=== PATIENT | male | born 1960 | race African-American/Black ===

== ENCOUNTER 2017-03-15 23:37 | Emergency (ER) | payer OTHER ==
[~2017-03-15] VITALS: Ht 182.9 cm; Wt 77.0 kg
[~2017-03-15 23:37] MED LIST: ALBU8.5H8 IH; ASPI-1182 PO
[2017-03-16] MEDS ORDERED: THIA100 PO (00:05)
[2017-03-16] MEDS ORDERED: FOLI1TAB15 PO (00:05)
[2017-03-16] MEDS ORDERED: MULT-12 PO (00:05)
[2017-03-16 02:08] VITALS: BP 135/80
[2017-03-16] MEDS ORDERED: HYDROCODONE/ACETAMINOPHEN 5-325 MG TABLET PO ONE (02:15)
== END 2017-03-16 02:35 | disposition home or self-care (01) ==
LOC: EMS 23:38
DX: M54.2 Cervicalgia (principal); M25.472 Effusion, left ankle; M54.9 Dorsalgia, unspecified; F17.210 Nicotine dependence, cigarettes, uncomplicated; F12.90 Cannabis use, unspecified, uncomplicated; Z88.5 Allergy status to narcotic agent
CPT/HCPCS: 99282; 99283; 99406